=== PATIENT | female | born 1960 | race African-American/Black ===

== ENCOUNTER 2021-08-13 08:05 | Emergency (ER) | payer OTHER ==
[~2021-08-13] VITALS: Ht 160 cm; Wt 59.0 kg
--- NOTE | 2021-08-13 08:15 | NUR ---
TO ER BED 12, BIB [id number], REPORTED TO BE FIGHTING THE POLICE WHEN TO GET PICKED UP FROM [employer] WITH A STICK, PT REFUSED VITALS SIGNS TAKEN, REFUSED TO BE SEEN BY , REFUSED TO GIVE NAME, "YOU CAN CALL ME ANY NAME YOU WANT". PT BREATHING EVEN AND NON LABORED. Addendum: 08/13/21 at 0835 by ANTONINO C/O FOOT PAIN
--- NOTE | 2021-08-13 08:15 | NUR ---
[facility] UNIT [id number] AT BEDSIDE
--- NOTE | 2021-08-13 08:15 | NUR ---
REFUSED TO BE EVALUATED BY PHYSICIAN
--- NOTE | 2021-08-13 08:32 | NUR ---
[id number] in stable condition. Written and verbal after care instructions given. Patient verbalizes understanding of instruction.
== END 2021-08-13 08:40 ==
LOC: EDBD 08:09 → ER 08:09
DX: Z53.21 Procedure and treatment not carried out due to patient leaving prior to being seen by health care provider (principal)